=== PATIENT | male | born 1955 | race Caucasian/White ===

== ENCOUNTER → 2017-05-02 | Day surgery (SDC) | payer MEDICARE ==
[~2017-05-02] VITALS: Ht 185.4 cm; Wt 156.0 kg
[~2017-05-02] MED LIST: ALBU8.5H2 INHALATION; ALLO300T2 PO; ASCO500C6 PO; ASPI-973 PO; ATEN50TA PO; CHOL200078 PO; FUR20 PO; HYDR50TA3 PO; INSU100V27 SQ; INSU100V7 SUBQ; INSU200I SQ; KEN25CR EXT; LISI10TA PO; METF500T4 PO; OMEP20CA11 PO; OXYC-530 PO; PRAM0.5T3 PO; SIMV20TA4 PO; Sodium Chloride LOK Flush 10 mL Syringe IV PRN; TERA10CA5 PO; TEST200V IM; fentaNYL-PF 50 mCg/mL 2 mL Inj IVPUSH PRN
[2017-05-02 12:29] VITALS: BP 150/71; PULSE 60; RESP 14; O2SAT 95
[2017-05-02] MEDS: 0.9% Sodium Chloride 1,000 ML IV PRN ×2 (12:54→13:14)
[2017-05-02 13:28] VITALS: BP 129/65; PULSE 62; RESP 14; O2SAT 95
[2017-05-02 13:42] VITALS: BP 125/71; PULSE 63; RESP 14; O2SAT 95
--- NOTE | 2017-05-02 13:48 | ENDO ---
[address] [address] ENDOSCOPY PROCEDURE PATIENT: DIANE PETERSEN : 1955 MR#: [id number] ADMIT: 05/02/2017 JOB ID: [id number] PRIMARY PROVIDER: Beau Santos MD. PROCEDURE: Colonoscopy with hot and cold snare polypectomy. INDICATIONS: A 61-year-old male with a history of multiple colon polyps. EQUIPMENT: PCF-H180AL. SEDATION: 6 mg Versed, 125 mcg fentanyl. COMPLICATIONS: None identified. BOWEL PREPARATION: Fair in the mid and distal bowel. Suboptimal in the ascending colon and cecum. PROCEDURE INFORMATION: After the risks and benefits were explained, written and verbal informed consent was obtained, the patient was brought into the endoscopy suite and placed into the left lateral decubitus position. Sedation was achieved using the above-stated medications with the addition of oxygen via nasal cannula. Digital rectal examination was accomplished. Mild internal hemorrhoids noted. The scope was introduced into the rectum and advanced to the cecum as identified by the stool-covered appendiceal orifice and ileocecal valve. The scope was slowly withdrawn to carefully examine the mucosa for any defects or lesions. Retroflexed views were accomplished in the rectum. The colon was decompressed, the scope removed from the patient who tolerated the procedure well. FINDINGS: Challenging to see any significant pathology in the ascending and cecum secondary to adherent green stool debris covering the treviño. This could not get fully cleansed today. From the hepatic flexure on down, however, prep was adequate and we removed three small polyps by hot snare and one diminutive polyp by cold snare. The largest polyp was perhaps 6 or 7 mm. Retroflexed views from within the rectum were unremarkable. Diverticulosis was seen in the left colon. ENDOSCOPIC DIAGNOSES: 1. Diverticulosis. 2. Hemorrhoids. 3. Colon polyps. RECOMMENDATIONS: 1. Await histopathology. 2. Repeat colonoscopy in 18 months. Again, the patient should get a GoLYTELY bowel prep but two days prior to colonoscopy, I would recommend he, in essence, start his liquid diet and take a couple of doses of MiraLAX and several bottles of Powerade that day to pre-clean the bowel prior to the official GoLYTELY prep.
--- NOTE | 2017-05-04 15:59 | PATH ---
SURGICAL PATHOLOGY Attending Physician:Maame Hazel CASE STATUS: Signed Out PATIENT NAME: DIANE PETERSEN PID: [id number] : 1955 DATE COLLECTED:05/02/2017 00:00 SPECIMEN: Colon, Polyp CLINICAL HISTORY: COLON POLYPS 1). COLON POLYPS FINAL DIAGNOSIS: 1.COLON POLYPS, BIOPSIES: TUBULAR ADENOMA (2 OF 5 PIECES). HYPERPLASTIC POLYP (3 OF 5 PIECES). ICD10 D12.6 GROSS DESCRIPTION: The specimen is received in one formalin filled container labeled with the patient's name, sublabeled "colon polyp" and consists of 5 portions of tissue which aggregate to 0.4 x 0.4 x 0.3 CM. The specimen is entirely submitted in one cassette. 05/03/2017DC MICRO DESCRIPTION: See diagnosis. ICD-9 CODES: CPT CODES: 1: 78532 Electronically Signed Out Wilton Nicholas MD, Ph.D. [facility] [address], [place] [address] Technical component performed at [facility], [facility] [address], [place], [address]
== END | disposition home or self-care (01) ==
LOC: END 00:28
PROVIDERS: ATTEND Internal Medicine Gastroenterology
DX: Z12.11 Encounter for screening for malignant neoplasm of colon (principal); Z86.010 Personal history of colon polyps; D12.6 Benign neoplasm of colon, unspecified; K57.30 Diverticulosis of large intestine without perforation or abscess without bleeding; K64.9 Unspecified hemorrhoids; I12.9 Hypertensive chronic kidney disease with stage 1 through stage 4 chronic kidney disease, or unspecified chronic kidney disease; E11.22 Type 2 diabetes mellitus with diabetic chronic kidney disease; E78.5 Hyperlipidemia, unspecified; G47.33 Obstructive sleep apnea (adult) (pediatric); G89.29 Other chronic pain; N18.1 Chronic kidney disease, stage 1; F41.8 Other specified anxiety disorders; Z79.82 Long term (current) use of aspirin; Z79.4 Long term (current) use of insulin; Z79.84 Long term (current) use of oral hypoglycemic drugs; Z79.891 Long term (current) use of opiate analgesic; Z87.891 Personal history of nicotine dependence; Z96.651 Presence of right artificial knee joint
CPT/HCPCS: 45385; 88305; 99153; G0500; J2250; J3010; J7030